=== PATIENT | male | born 1975 | race African-American/Black ===

== ENCOUNTER 2016-07-06 06:41 | Inpatient (IN) | payer OTHER ==
--- NOTE | ~2016-07-06 | EKG ---
PATIENT: SHAHRAM DUKES UNIT #: [id number] Ventricular Rate: 129 BPM Atrial Rate: 129 BPM P-R Interval: 140 ms QRS Duration: 104 ms Q-T Interval: 320 ms QTC Calculation(Bezet): 468 ms P [place]: 50 degrees Calculated R [place]: -29 degrees Calculated T [place]: 103 degrees Diagnosis Line: Sinus tachycardia Diagnosis Line: Possible Left atrial enlargement Diagnosis Line: ST and T wave abnormality, consider lateral ischemia Diagnosis Line: Abnormal ECG Diagnosis Line: No previous ECGs available Diagnosis Line: Confirmed by MIRTHA MCFARLAND MD ([id number]) on 07/07/2016 Diagnosis Line: 6:01:32 PM INTERPRETING MD: BARTOLO DAWN
--- NOTE | ~2016-07-06 | CO ---
Unit #: [id number] #: [id number] Patient: SHAHRAM DUKES [id number] [address] [place], [place] [address] [id number] I MR#: [id number] NAME: SHAHRAM DUKES. ROOM: 64833 Age: 41 Sex: M Admission Date: 07/06/2016 : 1975 Attending Physician: Marie Marcum M.D. Primary Care Physician: Marie Marcum M.D. Consultation Date: 07/06/2016 CONSULTATION REPORT REASON FOR CONSULT ICU management. HISTORY OF PRESENT ILLNESS This is a very pleasant, 41-year-old -[place] gentlemen with past medical history significant for hypertension, diabetes, end-stage renal disease, who presented to the emergency room from the dialysis unit with respiratory distress, unable to breathe. The patient stated that he has not missed any of his dialysis recently and he was on his way to the dialysis unit when he could not catch his breath and he felt heaviness on his chest. He denied any fever, chills or cough. No nausea, vomiting or diarrhea. The patient is compliant with his dialysis and medication but not so much with his diet. Upon presentation to the emergency room, the patient was placed on BiPAP and he was noted to be hypertensive. He is currently more comfortable and stating that he is feeling better. PAST MEDICAL HISTORY 1. End-stage renal disease. 2. Hypertension. 3. Hyperlipidemia. 4. Diabetes. 5. Anemia. 6. Systolic congestive heart failure with an ejection fraction of 25 to 30%. PAST SURGICAL HISTORY Dialysis shunt placement. SOCIAL HISTORY The patient lives with his family. She continues to smoke half pack per day for the last 10 years. No history of alcohol or drug abuse. FAMILY HISTORY Hypertension and diabetes. ALLERGIES No known drug allergy. Unit #: [id number] #: [id number] Patient: SHAHRAM DUKES HOME MEDICATION 1. Pantoprazole. 2. Fish oil. 3. Lantus. 4. Simvastatin. 5. Bumex. 6. Hydralazine. 7. Coreg. 8. Lipitor. REVIEW OF SYSTEMS A 12-point review of systems was obtained and was negative except for shortness of breath and chest heaviness. PHYSICAL EXAMINATION GENERAL APPEARANCE: Patient currently on BiPAP. HEENT: Atraumatic, normocephalic. PERRLA. NECK: Supple. No JVD. No lymphadenopathy. CHEST: Decreased breath sounds bilaterally with no wheezing or crackles. HEART: S1, S2. No murmur, gallops or rubs. ABDOMEN: Soft, nontender. Bowel sounds positive. No hepatosplenomegaly. EXTREMITIES: No edema or cyanosis. SKIN: No rashes. CENTRAL NERVOUS SYSTEM: Awake, alert, oriented x3. No focal motor/sensory deficit. DIAGNOSTIC STUDIES LABORATORY: pH 7.33, pCO2 42, pO2 154. Creatinine 6.1, sodium 134, CO2 23. WBC count is pending. IMAGING: Chest x-ray is noted and reviewed and there is no sign of pneumonia. ASSESSMENT 1. Acute hypoxic respiratory failure. 2. Accelerated hypertension. 3. End-stage renal disease. 4. Diabetes. 5. Chronic anemia. 6. Chronic systolic congestive heart failure. PLAN 1. The patient is critical. We will continue the patient on BiPAP and wean as tolerated. 2. IV hydralazine and labetolol p.r.n. to manage blood pressure but Cardene drip might be needed. 3. No signs of sepsis or infection at this point, so we will continue to monitor off antibiotics. 4. Hemodialysis per renal today. 5. Central line placement. 6. Blood pressure and blood sugar management. 7. DVT prophylaxis. Critical care time spent on this patient was 32 minutes. Dictated by... Evan Marino M.D. Unit #: [id number] #: [id number] Patient: SHAHRAM DUKES ANDREW/marleni TD: 07/06/2016 09:32 JOB #: [id number] CONSULTATION REPORT X EVAN MORRIS MD CONSULTATION REPORT
--- NOTE | ~2016-07-06 | CR72 ---
[facility] A Service of [facility] RADIOLOGY TEXT RESULTS PATIENT: SHAHRAM DUKES LOCATION: CEDOF : [birth year] UNIT #: [id number] AGE: [address]: Marie Marcum MD SEX: M ORDER DR: [id number] [facility] [address] [facility]. [place], [place] [address] [id number] I MR#: [id number] Acc #: [id number] NAME: SHAHRAM DUKES. : 1975 SEX: M STUDY DATE/TIME: 07/06/2016 9:07 UNIT: [facility] ROOM: 87421 STUDY DESCRIPTION: CR Chest Single View Portable Attending Physician: Marie Marcum M.D. Ordering Physician: Nia Perdue M.D. Primary Care Physician: Marie Marcum M.D. MEDICAL IMAGING REPORT This report is preliminary unless electronic signature is present EXAM Portable chest HISTORY Shortness of breath for the past day. TECHNIQUE Single view of the chest was obtained. COMPARISON 05/10/2016 FINDINGS Mild cardiomegaly is noted. Heart size is unchanged from the previous exam. No focal areas of alveolar consolidation are seen. There are 2 linear bands of plate-like atelectasis seen in the right ggn-qv-qqevi lung field. The remaining lung petit are clear. No pleural fluid is noted. Vascular markings are normal. IMPRESSION Mild plate-like atelectasis right flo-zp-lvywt lung field. Mild cardiomegaly. Dictated by... Isaac Nguyen M.D. THIS IS AN ELECTRONICALLY VERIFIED REPORT Isaac Nguyen M.D. at 07/06/2016 4:50 PM BRYAN/maegan TD: 07/06/2016 12:46 JOB #: [id number] [facility] A Service of [facility] RADIOLOGY TEXT RESULTS PATIENT: SHAHRAM DUKES LOCATION: CED : [birth year] UNIT #: [id number] AGE: [address]: Marie Marcum MD SEX: M ORDER DR: MEDICAL IMAGING REPORT COPY
--- NOTE | ~2016-07-06 | EKG ---
PATIENT: SHAHRAM DUKES UNIT #: [id number] Ventricular Rate: 82 BPM Atrial Rate: 82 BPM P-R Interval: 154 ms QRS Duration: 110 ms Q-T Interval: 448 ms QTC Calculation(Bezet): 523 ms P [place]: 61 degrees Calculated R [place]: -26 degrees Calculated T [place]: -5 degrees Diagnosis Line: Normal sinus rhythm Diagnosis Line: ST and T wave abnormality, consider anterolateral Diagnosis Line: ischemia Diagnosis Line: Prolonged QT Diagnosis Line: Abnormal ECG Diagnosis Line: When compared with ECG of 06-JUL-2016 06:13, Diagnosis Line: Vent. rate has decreased BY 47 BPM Diagnosis Line: Nonspecific T wave abnormality now evident in Diagnosis Line: Inferior leads Diagnosis Line: T wave inversion more evident in Anterior leads Diagnosis Line: T wave inversion less evident in Lateral leads Diagnosis Line: Confirmed by FABIO DIAS MD ([id number]) on Diagnosis Line: 07/08/2016 8:08:35 AM INTERPRETING ABHINAV REYNOLDS
--- NOTE | ~2016-07-06 | DS ---
Unit #: [id number] #: [id number] Patient: SHAHRAM DUKES [id number] [address] [address] [id number] I MR#: [id number] NAME: SHAHRAM DUKES. ROOM: 320 Age: 41 Sex: M Admission Date: 07/06/2016 : 1975 Discharge Date: 07/10/2016 Attending Physician: Marie Marcum M.D. Primary Care Physician: Marie Marcum M.D. DISCHARGE SUMMARY DISCHARGE DIAGNOSES 1. End-stage renal disease on hemodialysis. 2. Status post acute hypoxic respiratory failure. 3. Cardiomyopathy. 4. Diabetes. 5. Hypertension. 6. Blood count contamination with questionable bacteremia. CONSULTANTS DURING HOSPITAL STAY 1. Dr. Leblanc of infectious disease 2. Dr. Kaufman of cardiology 3. Dr. Gustavo Marino of nephrology DIAGNOSTIC STUDIES DURING HOSPITAL STAY LABORATORY: Blood culture, one out of two is negative, staphylococcus most likely contamination. IMAGING: Chest x-ray showed mild cardiomegaly and atelectasis. Mediport placement. CARDIOVASCULAR: Cardiac cath showed ejection fraction of 20% with cardiomyopathy. HISTORY OF PRESENT ILLNESS AND HOSPITAL STAY Please refer to the initial presentation of this gentleman. ACTIVE PROBLEMS AND DIAGNOSIS 1. End-stage renal disease was manage by nephrology, Dr. Gustavo Marino was continued on dialysis, follow up with neurology next Tuesday on July 12, 2016 for dialysis again. 2. Acute hypoxic respiratory failure, most likely secondary to fluid overload, currently no signs of respiratory distress, stable to be discharged by pulmonary. 3. Cardiomyopathy with ejection fraction of 20%, status post evaluation by cardiology, continue beta cris. 4. Questionable bacteremia most likely skin contaminant off of antibiotics, status post evaluation per ID. DISCHARGE MEDICATIONS 1. Atorvastatin 40 mg at bedtime 2. Coreg 25 mg b.i.d. 3. Norvasc 10 mg daily 4. EPO with the dialysis quickly Unit #: [id number] #: [id number] Patient: SHAHRAM DUKES 5. Hydralazine 100 mg t.i.d. 6. Zestril 10 mg daily 7. Minoxidil 12.5 mg daily 8. Aspirin 81 mg daily 9. Percocet 5/325 1-2 tablets q.4-6 p.r.n. for pain 10. PhosLo 667 mg p.o. t.i.d. with meals 11. Imdur 60 mg b.i.d. 12. Fish oil one capsule daily The patient is to follow up with the primary care physician in ymy-mr-bnmel days. Follow up with renal as outpatient and follow up with cardiology. Dictated by... Prakash Gentile/otilia TD: 07/11/2016 10:57 JOB #: [id number] DISCHARGE SUMMARY X Neil Abernathy MD X DISCHARGE SUMMARY
--- NOTE | ~2016-07-06 | CO ---
Unit #: [id number] #: [id number] Patient: SHAHRAM DUKES [id number] [address] [place], [place] [address] [id number] I MR#: [id number] NAME: SHAHRAM DUKES. ROOM: 320 Age: 41 Sex: M Admission Date: 07/06/2016 : 1975 Attending Physician: Marie Marcum M.D. Primary Care Physician: Marie Marcum M.D. CONSULTATION REPORT REASON FOR CONSULTATION Elevated troponin. HISTORY OF PRESENT ILLNESS This is a pleasant 41-year-old male with a past medical history of systolic CHF, hyperlipidemia, hypertension, diabetes mellitus type 2, and end-stage renal disease on hemodialysis. The patient reports he presented to the emergency room from the dialysis unit with worsening shortness of breath and chest tightness. In the emergency room, his blood pressure was found to be elevated at 200/119. The patient was also placed on BiPAP in the emergency room and was scheduled for urgent hemodialysis. Initial EKG shows sinus tachycardia, rate of 129 beats per minute, possible left atrial enlargement, ST-T wave abnormality is noted in the lateral leads. This appears the same as compared to prior EKGs. Initial troponin was less than 0.05, repeat troponin was 0.13 to 0.12 to 0.08. He reports he has been compliant with his medications and has been getting his dialysis routinely as scheduled. The patient reports he was just started on dialysis approximately 3 months ago. He does report that over the last week or so, he has had noticed becoming increasingly short of breath. He states he typically is not able to lie flat when sleeping, but recently he has had to use increasing pillows to support secondary to shortness of breath when lying supine. At present, he is resting in bed. He appears comfortable. He states he has some left-sided chest discomfort, it is worsened by cough around the rib cage area. Denies any shortness of breath. Denies any diaphoresis or radiation of his pain into the jaw, neck, or down the arm. It is notable the patient was recently at [facility] in 12/2015, at that time, he was seen and evaluated with Dr. Gonzalez. He was admitted and Cardiology and Renal were consulted. The patient was found to be at that time in systolic heart failure, was started on IV diuretics and dobutamine drip. Cardiac enzymes at that time, which were normal. He was started on carvedilol, Imdur, and hydralazine. No JAMES or ARB were started at that time secondary to kidney dysfunction. He also underwent a 2D echocardiogram, which showed an LVEF of 25% to 30%, moderate LVH, rhkqevrv-sz-oymnpx left atrial enlargement, moderate MR, mild TR. The patient was provided a LifeVest upon discharge and ischemic workup was planned when stable. He was found not to be a candidate for heart catheterization at that time at [facility] secondary to his renal function. When I asked about the LifeVest, the patient tells me that he was told his Unit #: [id number] #: [id number] Patient: SHAHRAM DUKES ejection fraction had improved and he no longer needed it. He did undergo a Cardiolite study in 12/2015 while at [facility], which showed an abnormal resting Cardiolite scan, LV cavity size appears dilated and there were areas of diminished tracer uptake involving the apical lateral wall and a portion in the mid and inferior basal wall. Prior jesus of infarction cannot be excluded. This admission, the patient is being followed by Nephrology. He has undergone dialysis and states he has been on that for approximately 3 months. We will proceed with ischemic workup. PAST MEDICAL HISTORY 1. End-stage renal disease, on hemodialysis. The patient has been started on hemodialysis approximately 3 months ago. 2. Hypertension. 3. Hyperlipidemia. 4. Diabetes mellitus, type 2. 5. Anemia. 6. Systolic congestive heart failure with an ejection fraction of 25% to 30%. 7. 2D echocardiogram in 12/2015 showed an EF of 25% to 30%, moderate LVH, humittsc-ug-nmywnw left atrial enlargement, moderate MR, mild TR. 8. He also had a Cardiolite stress test, which was at [facility] in 12/2015, which showed abnormal resting Cardiolite scan, left ventricular cavity appears dilated. 9. There were periods of diminished tracer uptake involving the apical lateral wall in portion of the mid and inferior basal wall. Prior areas of infarction cannot be excluded. PAST SURGICAL HISTORY Dialysis shunt placement. SOCIAL HISTORY The patient lives with his family. He reports he quit smoking several weeks ago, but does have a prior smoking history of a half pack a day in last 10 years. He denies any illicit drugs or alcohol. FAMILY HISTORY Positive for hypertension. ALLERGIES No known drug allergies. HOME MEDICATIONS Eliphos 667 mg p.o. t.i.d. with meals, carvedilol 1 tablet p.o. b.i.d., fish oil 1000 mg one capsule p.o. daily, atorvastatin 40 mg p.o. q.h.s., Imdur 60 mg p.o. b.i.d., Norvasc 10 mg p.o. daily, lisinopril 20 mg p.o. daily, hydralazine 100 mg p.o. t.i.d. REVIEW OF SYSTEMS A 12-point review of systems was obtained and was negative except for shortness of breath, chest tightness, fatigue. PHYSICAL EXAMINATION GENERAL APPEARANCE: This is a pleasant 41-year-old male, who is in no acute distress. He is currently resting in bed. HEENT: Pupils are equal and round. Head is atraumatic and normocephalic. NECK: Supple. No JVD. No lymphadenopathy. No thyromegaly. Trachea is Unit #: [id number] #: [id number] Patient: SHAHRAM DUKES midline. CHEST: Lungs are clear anterior. Diminished in the bases. ABDOMEN: Obese, pannus, soft, nontender, nondistended. Bowel sounds are positive. EXTREMITIES: Pulses are palpable. No clubbing, cyanosis, or edema. NEUROLOGIC: The patient is awake, alert, and oriented x3. Moves all extremities equally. Follows commands with ease. DIAGNOSTIC STUDIES LABORATORY RESULTS: Sodium 140, potassium 4.2, chloride 104, CO2 of 25, BUN 45, creatinine 7.1, blood glucose is 76, magnesium is 2.3. Hemoglobin is 9.8 with hematocrit 30.4, WBC 7.6, platelet count 173. IMAGING STUDIES: Chest x-ray shows no active disease. CARDIOVASCULAR STUDIES: EKG shows sinus tachycardia, rate of 129 beats per minute, possible left atrial enlargement, ST-T wave abnormality in the lateral leads. ASSESSMENT 1. Acute hypoxic respiratory failure requiring BiPAP on admission as well as urgent hemodialysis. 2. Malignant hypertension. 3. Indeterminate troponin. 4. End-stage renal disease, on hemodialysis. 5. Diabetes mellitus. 6. Chronic anemia. 7. Chronic systolic congestive heart failure with left ventricular ejection fraction of 25% to 30%, xlklvere-xb-wpsloo dilated left ventricle, moderate left ventricular hypertrophy, moderate mitral regurgitation. 8. Obesity. 9. Reformed tobacco abuse. PLAN At the present, the patient's blood pressure is better; however, there is still some room to improve. He is on optimal medications for blood pressure, however, we will increase his lisinopril to 20 mg p.o. b.i.d. and hold for systolic blood pressure less than 100. The patient did have some chest pain with an indeterminate troponin. EKG does, however, show abnormality with ST-T wave changes and depression in the lateral leads. The patient does have risk factors for coronary artery disease, which include hypertension, diabetes mellitus, obesity, and hyperlipidemia. He also had abnormal stress test in 12/2015, no cardiac cath was performed at that time secondary to renal dysfunction. The patient was discharged from [facility] with a LifeVest. However, he states he is not wearing that anymore that he was told his LV function has improved. The patient has been on dialysis for the last approximately 3 months and it would be recommended to go ahead and proceed with cardiac catheterization to evaluate coronary anatomy, to rule out any ischemic cause of his cardiomyopathy. We will check a fasting lipid profile that will be added to the lab, CBC, and BMP in the tomorrow a.m. This has been discussed with the patient, he is willing and agreeable to proceed, both risks and benefits have been discussed. We will proceed with left heart catheterization and LV-gram tomorrow per Dr. Kaufman. Further recommendations pending the outcome of the cardiac catheterization. Unit #: [id number] #: [id number] Patient: SHAHRAM DUKES Dictated by... Shae Odom A.P.R.N. LMW/modl TD: 07/07/2016 22:10 JOB #: [id number] CONSULTATION REPORT X Shae Odom APRN X CONSULTATION REPORT
--- NOTE | ~2016-07-06 | CO ---
Unit #: [id number] #: [id number] Patient: SHAHRAM DUKES [id number] [address] [place], [place] [address] [id number] MR#: [id number] NAME: SHAHRAM DUKES. ROOM: 320 Age: 41 Sex: M Admission Date: 07/06/2016 : 1975 Attending Physician: Marie Marcum M.D. Primary Care Physician: Marie Marcum M.D. Requesting Physician: Marie Marcum M.D. Consultation Date: 07/08/2016 CONSULTATION REPORT REASON FOR CONSULTATION Positive blood culture. HISTORY OF PRESENT ILLNESS This is a 41-year-old gentleman, -Green[place]ic, with a history of cardiomyopathy with congestive heart failure, hyperlipidemia, hypertension, diabetes, end stage renal disease on hemodialysis via fistula, who was admitted with worsening shortness of breath and chest tightness. He was found to be hypertensive on admission and required emergent hemodialysis. There were no specific ST-T changes and troponin was elevated to some degree. He never had any fever or leukocytosis and did not have any symptoms suggestive of pneumonia or UTI. One of the two blood cultures is now positive for coag negative Staph for which vancomycin was initiated and ID was consulted for further evaluation. The patient, at this time, is currently stable. He is wide awake and alert, does not have any symptoms. He has a fistula in the left upper extremity and triple lumen catheter in the left groin just placed on admission. PAST MEDICAL HISTORY 1. End stage renal disease, on hemodialysis. 2. Hypertension. 3. Hyperlipidemia. 4. Diabetes mellitus. 5. Anemia. 6. Congestive heart failure with EF of 20%. PREVIOUS SURGERIES Dialysis shunt placement. SOCIAL HISTORY Lives with his family. He quit smoking several years ago. No history of alcohol or drug use. FAMILY HISTORY Positive for hypertension. DRUG ALLERGIES None. HOME MEDICATIONS 1. Eliphos. 2. Carvedilol. 3. Fish oil. 4. Atorvastatin. Unit #: [id number] #: [id number] Patient: SHAHRAM DUKES 5. Imdur. 6. Norvasc. 7. Lisinopril. 8. Hydralazine. Hospital medications were reviewed as well. Only addition is IV vancomycin. SYSTEMIC REVIEW Shortness of breath, chest tightness which has now resolved. He never had any fevers, chills. There is no cough, dysuria, rash, cellulitis, headache or mental status changes. PHYSICAL EXAMINATION GENERAL APPEARANCE: Young -Green[place]ic male who looks older than his stated age. He is wide awake and alert and doesn't appear to be in any distress. VITAL SIGNS: Temperature is 97.7, heart rate 71, respirations 15, blood pressure 116/55. No fever was documented during this admission. HEENT/NECK: Neck is supple. Oral hygiene is poor. There is trace edema bilaterally. LUNGS: Clear to percussion and auscultation. HEART: Heart sounds are normal. There are no murmurs. ABDOMEN: Grossly obese, soft and nontender. There is no rebound or guarding. Bowel sounds are normal. Triple lumen site in the left groin is clean. AV fistula site is clean as well. NEUROLOGICAL EXAMINATION: Nonfocal. DIAGNOSTIC STUDIES LABORATORY: Blood cultures one out of two sets is positive for coag negative Staph which is most likely a contaminate. Urine culture is negative. Sodium is 141, potassium 4.3, chloride 105, CO2 22, BUN 53, creatinine 7.8. White count is 6.7, hemoglobin 9.6, platelets 180. Troponin 0.08. Urinalysis - 5-10 WBCs. The patient has no dysuria. Influenzae screen was negative. IMAGING: Chest x-ray - plate-like atelectasis of right lower lung field. Mild cardiomegaly. Lactic acid 1.1. IMPRESSION One out of two positive blood cultures for coag negative Staph in this patient who has no symptom of infection: It is most likely a skin contaminate. The patient is now behaving like somebody who is septic or has any active infectious process. RECOMMENDATIONS Will DC vancomycin, observe closely. I will ask nursing staff to call me if the patient spikes any fever or if the clinical status changes. I also discussed the plan with Dr. Marcum who is agreeable. I also recommended to remove the central line from the groin if possible to prevent line related infection. Unit #: [id number] #: [id number] Patient: SHAHRAM DUKES Dictated by... Conner Leblanc M.D. Betzaida TD: 07/09/2016 09:25 JOB #: [id number] CONSULTATION REPORT X Conner Leblanc MD CONSULTATION REPORT
--- NOTE | ~2016-07-06 | A ---
[facility] Nutrition Therapy DATE: 07/07/16 Patient: SHAHRAM DUKES Physician: LEYLA Address: [address] [place] [address] Room/Bed: [address] [place] [address], Zip: [place] [address] Admit Date: 07/06/16 Date of : [birth year] Height: 6 2 Weight: 238 108.2 NUTRITIONAL ASSESSMENT: REASON: RD trigger for eating poorly and wt loss. PMH: HTN, DM, ESRD, HLD, Anemia, CHD, 1/2 PPD smoker Anthropometrics: 74", 248#, BMI 31.8 Labs: BUN 45, Cr 7.1, Ca++ 7.6, Alb 3.1, Phos 7.0, POC 91-146 Meds: Lipitor, Fish oil, Phoslo I/O & Bowel function: BM 07/05 Skin Integrity: No open wounds Assessment: 41 y/o male admitted for respiratory distress/volume overload. Pt states appetite good, consumed 100% of breakfast tray(eggs/sausage/toast/jello). Unsure wt loss. Reviewed wts appears pt has only lost 2-10# in the past year. Renal labs elevated, reports compliance w/dialysis but admits not always consistent w/following diet. Familiar w/diet guidelines, sees RD every couple weeks. 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 Not interested in protein supplements-Nepro. Dx: N/A Intervention: 1. Carb consistent diet Monitoring, Evaluation and Goals: 1. Continue to consume >75% of meals Recommendations: 1. If renal labs don't improve recommend adding Low Phos/K+/Na+ restriction Respectfully, BERNIE FORREST RD, LD [facility] Nutrition Therapy DATE: 07/07/16 Patient: SHAHRAM DUKES Physician: LEYLA Address: [address] [place] [address] Room/Bed: [address] [place] [address], Zip: [place] [address] Admit Date: 07/06/16 Date of : [birth year] Height: 6 2 Weight: 238 108.2 Food and Nutritional Services [facility] cc: client file
--- NOTE | ~2016-07-06 | XA75 ---
[facility] A Service of [facility] & [facility] RADIOLOGY TEXT RESULTS PATIENT: SHAHRAM DUKES LOCATION: [facility] 320- : [birth year] UNIT #: [id number] AGE: [address]: Marie Marcum MD SEX: M ORDER DR: [id number] [facility] [address] [place], [place] [address] [id number] MR#: [id number] #: [id number] NAME: SHAHRAM DUKES. : 1975 SEX: M STUDY DATE/TIME: 07/06/2016 12:30 UNIT: [address] ROOM: [facility] STUDY DESCRIPTION: XA CVC Non-Tunnel Attending Physician: Marie Marcum M.D. Ordering Physician: Jose De Jesus Marino M.D. Primary Care Physician: Marie Marcum M.D. MEDICAL IMAGING REPORT This report is preliminary unless electronic signature is present EXAM MediPort placement. INDICATION Need for IV access. Patient does have a history of endstage renal disease. TECHNIQUE Procedure was explained to the patient including risks, benefits, potential complications, potential for alternative forms of treatment. Informed consent was obtained and prior to initiating the procedure, a formal time-out procedure was performed. Using all elements of maximal sterile barrier technique. Including hand hygiene, caps, sterile gowns, and gloves and masks, the right neck was prepped with 2% chlorhexidine for cutaneous antisepsis and covered with a large sterile sheet. Real-time sterile ultrasound guidance was used to localize the right internal jugular vein, which was found to be somewhat small in caliber and was noncompressible. At this point, I turned my attention to the left internal jugular vein, again using all elements of maximal sterile barrier technique including hand hygiene, caps, sterile gowns, and gloves and masks. The left neck was prepped with 2% chlorhexidine for cutaneous and sepsis and covered with a large sterile sheet. This vessel appeared to be normal in caliber and showed limited compressibility. After local anesthesia with 1% Xylocaine, the vein was punctured several times using real-time sterile ultrasound guidance, however, I was unable to aspirate any blood or thread the wire through the vessel. It is presumed to have clot within it, as well. Finally, I turned my attention to the left common femoral vein, again using all elements of maximal sterile barrier technique including hand hygiene, sterile caps and gloves and masks. The left groin was prepped 2% chlorhexidine for cutaneous antisepsis and covered with a large sterile sheet. Real-time sterile ultrasound-guidance was used to localize the left common femoral vein which was found to be patent and compressible. A [facility] A Service of [facility] RADIOLOGY TEXT RESULTS PATIENT: SHAHRAM DUKES LOCATION: [facility] 320-01 : 77 UNIT #: [id number] AGE: [address]: Marie Marcum MD SEX: M ORDER DR: hard copy ultrasound image was obtained. After local anesthesia with 1% Xylocaine, the vein was punctured. Using real-time sterile ultrasound guidance, and 0.018 Guidewire was advanced into the left common iliac vein. A micropuncture sheath was placed and a J-wire was advanced into the left common iliac vein. I did try to dilate the tract. When this was unsuccessful, a 6-Guinean dilator was advanced over wire and an Amplatz wire was placed. At this point, I able to dilate the tract and place a central line, which terminated within the left common iliac vein. Following placement of the catheter, it flushed and aspirated easily. It was secured using two 2-0 Silk sutures and its position was confirmed with a radiographic image. Total fluoroscopy time was 0.2 minutes. AK was 8 mGy. IMPRESSION Successful placement of a left common femoral central venous line which terminates within the left common iliac vein. This catheter is ready for immediate use. Please note attempts were made to access both the patient's right internal jugular vein and left internal jugular vein and both of these are favored to have thrombus within them. Dictated by... Brea Arreola M.D. THIS IS AN ELECTRONICALLY VERIFIED REPORT Brea Arreola M.D. at 07/07/2016 5:03 PM AFF/tmw TD: 07/07/2016 10:38 JOB #: [id number] MEDICAL IMAGING REPORT COPY
[~2016-07-06 06:41] MED LIST: ACETAMINOPHEN PO; ATORVASTATIN CA40 MG PO; BP PILL; BUMEX2 MG PO; CALCITRIOL0.25 MC1 PO; CARVEDILOL25 MG PO; CATAPRES0.3 MG PO; ELIPHOS667 MG PO; ERYTHROMYCIN O3.5 GM TOP; FISH OIL 1,0001 CAP PO; FISH OIL 1,0001 EAC1 PO; GLUCOTROL PO; HYDRALAZINE HCL50 MG PO; IMDUR-ER60 M1 PO; ISOSORBIDE MONO30 MG PO; LANTUS100 U/ML SUBQ; LIPITOR40 MG PO; LISINOPRIL PO; LOVAZA PO; NIASPAN PO; NORVASC PO; NOVOLOG MIX 70/33 ML INJ; NOVOLOG100 U/ML INJ; NOVOLOG100 U/ML SUBQ; PANTOPRAZOLE SO40 MG PO; PROCRIT10000 U/ML INJ; ROCALTROL0.5 MC1 PO; SODIUM BICARBO650 MG PO; VIBRAMYCIN100 M1 PO; ZOCOR PO; [UNRECOGNIZED DRUG - OTHER] TOP
[2016-07-06 07:01] LABS: POC - CKMB 12.1 ng/mL (0.0-7.9); POC - TROPONIN <0.05 ng/mL (<=0.05)
[2016-07-06 07:16] LABS: ARTERIAL BLD GAS O2 SATURATION 97.2 % (90.0-100.0); ARTERIAL BLOOD GAS CARBOXY HB 2.3 %sat (0.0-9.0); ARTERIAL BLOOD GAS HCO3 21.5 mmol/L; ARTERIAL BLOOD GAS MET HB 0.8 %sat (0.0-2.0); ARTERIAL BLOOD GAS PCO2 48.2 mmHg (35.0-45.0); ARTERIAL BLOOD GAS pH 7.258 (7.350-7.450)
[2016-07-06 07:18] LABS: ARTERIAL BLOOD GAS ALLEN TEST NORMAL; ARTERIAL BLOOD GAS ART SITE RIGHT RADIAL; ARTERIAL BLOOD GAS DELIVERY BIPAP 14/6; ARTERIAL DRAW? YES
[2016-07-06 08:28] LABS: ARTERIAL BLOOD GAS CARBOXY HB 1.9 %sat (0.0-9.0); ARTERIAL BLOOD GAS HCO3 22.6 mmol/L; ARTERIAL BLOOD GAS MET HB 0.8 %sat (0.0-2.0); ARTERIAL BLOOD GAS pH 7.339 (7.350-7.450)
[2016-07-06 08:29] LABS: ARTERIAL BLOOD GAS ALLEN TEST NORMAL; ARTERIAL BLOOD GAS ART SITE RIGHT RADIAL; ARTERIAL BLOOD GAS DELIVERY BIPAP 14/6; ARTERIAL DRAW? YES
[2016-07-06 08:38] LABS: INFLUENZA A NEG (NEG); INFLUENZA B NEG (NEG)
[2016-07-06 08:51] LABS: BASOPHIL# 0.1 X10e3 (0-0.3); BASOPHIL% 0.7 % (0-2.5); EOSINOPHIL# 0.2 X10e3 (0-0.7); EOSINOPHIL% 1.3 % (0.0-7.0); HEMATOCRIT 37.4 % (38.0-50.0); HEMOGLOBIN 11.9 gm/dL (13.0-16.0); LYMPHOCYTE# 0.7 X10e3 (1.0-3.5); LYMPHOCYTE% 4.3 % (17.0-45.0); MEAN CELL VOLUME 83.9 FL (83-96); MEAN CORPUSCULAR HEMOGLOBIN 26.6 PG (28-34); MEAN CORPUSCULAR HGB CONC 31.7 g/dL (30-36); MEAN PLATELET VOLUME 8.6 FL (6.5-11.5); MONOCYTE# 0.9 X10e3 (0-1.0); MONOCYTE% 5.5 % (3.0-12.0); NEUTROPHIL# 13.9 X10e3 (1.5-7.1); NEUTROPHIL% 88.2 % (40-75); PLATELET COUNT 235 X10e3 (140-420); RED BLOOD COUNT 4.46 X10e (3.90-5.60); RED CELL DISTRIBUTION WIDTH 16.4 % (11.0-15.5); WHITE BLOOD COUNT 15.8 X10e3 (4.0-10.5)
[2016-07-06 08:52] LABS: DIFF IND YES
[2016-07-06 08:54] LABS: PARTIAL THROMBOPLASTIN TIME 25.6 SECONDS (23.5-31.3); PROTHROMBIN TIME (PATIENT) 10.6 SECONDS (9.6-11.5)
[2016-07-06 09:06] LABS: POC - CKMB 3.3 ng/mL (0.0-7.9); POC - TROPONIN <0.05 ng/mL (<=0.05)
[2016-07-06 09:10] LABS: LIPASE 65 U/L (22-51)
[2016-07-06 09:10] LABS: ANISOCYTOSIS SL; PLATELET ESTIMATE NORMAL (NORMAL)
[2016-07-06] MEDS ORDERED: LISINOPRIL20 MG PO (09:13)
[2016-07-06] MEDS ORDERED: HYDRALAZINE HC100 MG PO (09:14)
[2016-07-06 09:18] LABS: ALCOHOL BLOOD <5 mg/dL (0)
[2016-07-06 09:19] LABS: URINE SOURCE CATH
[2016-07-06 09:24] LABS: URINE APPEARANCE CLEAR; URINE BILIRUBIN NEG (NEG); URINE BLOOD 1+ (NEG); URINE COLOR YELLOW; URINE GLUCOSE 100 MG/DL (NEG); URINE KETONE NEG (NEG); URINE LEUKOCYTE ESTERASE NEG (NEG); URINE NITRATE NEG (NEG); URINE PH 7.5 (5-8); URINE PROTEIN 3+ (NEG); URINE SPECIFIC GRAVITY 1.014 (1.003-1.035); URINE UROBILINOGEN 0.2 MG/DL (NEG)
[2016-07-06 09:27] LABS: URINE BACTERIA AUWI NEG (NEGATIVE); URINE SQUAMOUS EPITHELIAL CELL OCC /[HPF]
[2016-07-06 10:13] LABS: BUN/CREATININE RATIO 6.98; CALCIUM SERUM 7.8 mg/dL (8.4-10.2); CREATININE SERUM 8.3 mg/dL (0.6-1.4); GLOM FILT RATE Estimated 9.3 mL/min (>60); MAGNESIUM 2.3 mg/dL (1.6-3.0); POTASSIUM 5.2 mmol/L (3.5-5.1)
[2016-07-06 10:45] LABS: ALBUMIN SERUM 3.1 g/dL (3.5-5.0); BILIRUBIN,INDIRECT 0.2 mg/dL (0.0-0.9); BILIRUBIN,TOTAL 0.2 mg/dL (0.2-2.0); PROTEIN TOTAL SERUM 7.2 g/dL (6.0-8.3)
[2016-07-06 17:32] LABS: %MB 1.8 % (0.0-4.0); MB 5.1 ng/ml
[2016-07-07 01:10] LABS: %MB 1.4 % (0.0-4.0); MB 3.8 ng/ml
[2016-07-07 05:32] LABS: HEMATOCRIT 30.4 % (38.0-50.0); MEAN CORPUSCULAR HEMOGLOBIN 27.1 PG (28-34); MEAN CORPUSCULAR HGB CONC 32.2 g/dL (30-36); MEAN PLATELET VOLUME 8.6 FL (6.5-11.5); RED BLOOD COUNT 3.63 X10e (3.90-5.60); RED CELL DISTRIBUTION WIDTH 16.4 % (11.0-15.5)
[2016-07-07 05:35] LABS: HEMOGLOBIN 9.8 gm/dL (13.0-16.0); WHITE BLOOD COUNT 7.6 X10e3 (4.0-10.5)
[2016-07-07 06:09] LABS: BUN/CREATININE RATIO 6.33; CALCIUM SERUM 7.6 mg/dL (8.4-10.2); CREATININE SERUM 7.1 mg/dL (0.6-1.4); GLOM FILT RATE Estimated 11.1 mL/min (>60); POTASSIUM 4.2 mmol/L (3.5-5.1)
[2016-07-07 09:28] LABS: %MB 1.7 % (0.0-4.0); MB 4.2 ng/ml
[2016-07-07 09:34] LABS: CHOLESTEROL 126 mg/dL (0-200); HDL CHOLESTEROL 33 mg/dL (29-75); LDL CHOLESTEROL 71 mg/dL (-130); LDL/HDL RATIO 2 RATIO (0-4); TRIGLYCERIDES 109 mg/dL (10-160)
[2016-07-08 05:19] LABS: HEMATOCRIT 29.9 % (38.0-50.0); HEMOGLOBIN 9.6 gm/dL (13.0-16.0); MEAN CELL VOLUME 82.8 FL (83-96); MEAN CORPUSCULAR HEMOGLOBIN 26.7 PG (28-34); MEAN CORPUSCULAR HGB CONC 32.3 g/dL (30-36); MEAN PLATELET VOLUME 8.9 FL (6.5-11.5); RED BLOOD COUNT 3.61 X10e (3.90-5.60); RED CELL DISTRIBUTION WIDTH 15.9 % (11.0-15.5); WHITE BLOOD COUNT 6.7 X10e3 (4.0-10.5)
[2016-07-08 05:33] LABS: PARTIAL THROMBOPLASTIN TIME 26.1 SECONDS (23.5-31.3)
[2016-07-08 06:52] LABS: BUN/CREATININE RATIO 6.79; CALCIUM SERUM 7.9 mg/dL (8.4-10.2); CREATININE SERUM 7.8 mg/dL (0.6-1.4); GLOM FILT RATE Estimated 9.9 mL/min (>60); POTASSIUM 4.3 mmol/L (3.5-5.1)
[2016-07-10 05:56] LABS: BASOPHIL# 0.1 X10e3 (0-0.3); BASOPHIL% 1.5 % (0-2.5); EOSINOPHIL# 0.5 X10e3 (0-0.7); EOSINOPHIL% 7.7 % (0.0-7.0); HEMATOCRIT 30.9 % (38.0-50.0); LYMPHOCYTE# 1.6 X10e3 (1.0-3.5); LYMPHOCYTE% 27.6 % (17.0-45.0); MEAN CELL VOLUME 82.5 FL (83-96); MEAN CORPUSCULAR HEMOGLOBIN 26.6 PG (28-34); MEAN CORPUSCULAR HGB CONC 32.3 g/dL (30-36); NEUTROPHIL# 2.6 X10e3 (1.5-7.1); NEUTROPHIL% 45.2 % (40-75); PLATELET COUNT 184 X10e3 (140-420); RED BLOOD COUNT 3.74 X10e (3.90-5.60); RED CELL DISTRIBUTION WIDTH 16.3 % (11.0-15.5); WHITE BLOOD COUNT 5.8 X10e3 (4.0-10.5)
[2016-07-10 05:59] LABS: DIFF IND NO
[2016-07-10 06:31] LABS: BUN/CREATININE RATIO 5.88; CALCIUM SERUM 8.1 mg/dL (8.4-10.2); CREATININE SERUM 8.5 mg/dL (0.6-1.4); POTASSIUM 4.7 mmol/L (3.5-5.1)
[2016-07-10] MEDS ORDERED: CHEWABLE ASPIRI81 MG PO (20:11)
[2016-07-10] MEDS ORDERED: MINOXIDIL2.5 MG PO (20:11)
[2016-07-10] MEDS ORDERED: PERCOCET5/325 PO (20:13)
[2016-07-10] MEDS ORDERED: PAIN & FEVER325 MG PO (20:14)
== END 2016-07-10 22:07 | disposition home or self-care (01) | DRG 189 ==
LOC: CED 06:41 → CEDOF 08:05 → C3A PCU 18:10
PROVIDERS: Emergency Medicine; Hospitalist; Internal Medicine Cardiovascular Disease; Internal Medicine Pulmonary Disease; Physician Assistant Medical
PROC: 05H433Z Insertion of Infusion Device into Left Innominate Vein, Percutaneous Approach (ICD-10-PCS; 2016-07-06)
PROC: B51VYZA Fluoroscopy of Other Veins using Other Contrast, Guidance (ICD-10-PCS; 2016-07-06)
PROC: B54NZZA Ultrasonography of Left Upper Extremity Veins, Guidance (ICD-10-PCS; 2016-07-06)
PROC: 5A1D60Z (ICD-10-PCS; principal; 2016-07-08)
PROC: 4A023N7 Measurement of Cardiac Sampling and Pressure, Left Heart, Percutaneous Approach (ICD-10-PCS; 2016-07-08)
PROC: B211YZZ Fluoroscopy of Multiple Coronary Arteries using Other Contrast (ICD-10-PCS; 2016-07-08)
DX: J96.01 Acute respiratory failure with hypoxia (principal); I13.2 Hypertensive heart and chronic kidney disease with heart failure and with stage 5 chronic kidney disease, or end stage renal disease; N18.6 End stage renal disease; I42.9 Cardiomyopathy, unspecified; E11.22 Type 2 diabetes mellitus with diabetic chronic kidney disease; I50.22 Chronic systolic (congestive) heart failure; Z99.2 Dependence on renal dialysis; Z87.891 Personal history of nicotine dependence; E66.9 Obesity, unspecified; E78.5 Hyperlipidemia, unspecified; Z91.11 Patient's noncompliance with dietary regimen; Z79.4 Long term (current) use of insulin; D63.1 Anemia in chronic kidney disease
CPT/HCPCS: 36600; 51702; 71010; 76937; 77001; 80048; 80061; 80076; 81003; 82550; 82553; 82803; 82947; 83605; 83690; 83735; 84100; 84484; 85025; 85027; 85610; 85730; 87040; 87086; 87804; 93005; 94660; 99291; C1769; C1887; C1894; G0480; J1644; J1650; J2250; J3010; J3370; Q4081

== ENCOUNTER 2016-09-15 22:58 | Emergency (ER) | payer OTHER ==
--- NOTE | ~2016-09-15 | EKG ---
PATIENT: SHAHRAM DUKES UNIT #: [id number] Ventricular Rate: 75 BPM Atrial Rate: 75 BPM P-R Interval: 164 ms QRS Duration: 98 ms Q-T Interval: 420 ms QTC Calculation(Bezet): 469 ms P [place]: 71 degrees Calculated R [place]: -30 degrees Calculated T [place]: -25 degrees Diagnosis Line: Normal sinus rhythm Diagnosis Line: Left axis deviation Diagnosis Line: Incomplete right bundle branch block Diagnosis Line: Septal infarct , age undetermined Diagnosis Line: ST and T wave abnormality, consider anterolateral Diagnosis Line: ischemia Diagnosis Line: Abnormal ECG Diagnosis Line: No previous ECGs available Diagnosis Line: Confirmed by CHINA ALMAGUER MD ([id number]) on 09/19/2016 Diagnosis Line: 3:54:43 PM INTERPRETING MD: TRIPP DAWN
[~2016-09-15 22:58] MED LIST changes: +CHEWABLE ASPIRI81 MG PO; +HYDRALAZINE HC100 MG PO; +LISINOPRIL20 MG PO; +MINOXIDIL2.5 MG PO; +PAIN & FEVER325 MG PO; +PERCOCET5/325 PO
== END 2016-09-16 00:04 | disposition home or self-care (01) ==
LOC: CED 22:58
DX: I13.2 Hypertensive heart and chronic kidney disease with heart failure and with stage 5 chronic kidney disease, or end stage renal disease (principal); E11.22 Type 2 diabetes mellitus with diabetic chronic kidney disease; N18.6 End stage renal disease; I50.9 Heart failure, unspecified; Z99.2 Dependence on renal dialysis
CPT/HCPCS: 93005; 99283